=== PATIENT | female | born 1980 | race Caucasian/White ===

== ENCOUNTER 2020-01-23 13:33 | Emergency (ER) | payer OTHER, SELFPAY ==
[2020-01-23 13:45] VITALS: BP 130/88; PULSE 72; RESP 14; TEMP 36.6; O2SAT 99; BMI 27.4
[2020-01-23 14:10] LABS: Glucose Urine UA NEG (NEG); Leukocyte Esterase Urine NEG (NEG); Nitrite Urine NEG (NEG); PH 5.5 (5.0-8.0); Specific Gravity - Urine >= 1.030 (1.005-1.025); UPreg QC Valid YES; Urine Blood 2+ (NEG); Urine Ketones NEG (NEG); Urine Pregnancy NEGATIVE (NEGATIVE); Urine Protein NEG (NEG-TRACE)
[2020-01-23 14:13] LABS: Appearance Urine HAZY; Color Urine YELLOW
[2020-01-23 14:21] LABS: Amorphous Sediment Urine 2+ /LPF; WBC Urine 0 /HPF (0-4)
[2020-01-23 15:35] VITALS: BP 126/80; PULSE 62; RESP 18; TEMP 36.8; O2SAT 97
--- NOTE | 2020-01-23 15:42 | ED_ITS ---
HPI - Abdominal Pain General Chief Complaint: Abdominal Pain Stated Complaint: abd pain Time Seen by Provider: 01/23/20 15:41 Source: patient Mode of arrival: ambulatory Limitations: no limitations History of Present Illness HPI narrative: Pleasant 39-year-old female with past medical history that is significant for she is and surgical history of laparoscopic cholecystectomy, Caesarean section, tonsillectomy and adenectomy who presents today with complaint of pelvic cramping like discomfort for the past several days after she reports that she had a positive done 2 weeks ago and a week later she has some vaginal bleeding and passed a clot consistent with her previous 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 Bleeding has resolved. There is no vaginal discharge or dysuria. And also noted some mild swelling only in the mornings and will resolve in the evenings. She denies any chest pain or shortness of breath. She does report prior history of IVDA use but has been clean for many years now. Denies headache, and neck pain, back pain, fever or chills. MD elicited complaint: abdominal pain Pertinent past history: none Onset (ago): day(s) Severity: mild Quality: cramping Related Data Allergies Allergy/AdvReac Type Severity Reaction Status Date / Time No Known Allergies Allergy Unverified 11/02/19 15:39 Review of Systems Review of Systems Constitutional: No Weight loss, No Fever, No Chills, No Night Sweats, No Fatigue, No Malaise ENT/Mouth: No Hearing loss, No Ear Pain, No Nasal Congestion, No Sinus Pain, No Hoarseness, No sore throat, No Rhinorrhea, No Swallowing Difficulty Eyes: No Eye Pain, No Swelling, No Redness, No Foreign Body, No Discharge, No Vision Changes Cardiovascular: No Chest Pain, No SOB, No Dyspnea on Exertion, No Orthopnea, No Edema, No Palpitations Respiratory: No Cough, No Sputum, No Wheezing, No Smoke Exposure, No Dyspnea Gastrointestinal: No Nausea, No Vomiting, No Diarrhea, No Constipation, + abdominal Pain as noted in HPI Genitourinary: no irregular bleeding, No Dysuria, No Urinary Frequency, No Hematuria, No Urinary Incontinence, No Urgency Musculoskeletal: No joint pain, No Myalgias, No Joint Swelling Skin: No Skin Lesions, No rash Neuro: No Weakness, No Numbness, No Paresthesias, No Loss of Consciousness, No Dizziness, No Headache Psych: No Anxiety/Panic, No Depression, No SI/HI/AH/VH, No Social Issues Heme/Lymph: No Bruising, No Bleeding,No Lymphadenopathy Endocrine: No Polyuria, No Polydipsia, No Temperature Intolerance Yes all other systems are reviewed and are negative Physical Exam Vital Signs: Vital Signs: Last Vital Signs Temp 98.3 F 01/23/20 15:35 Pulse 62 01/23/20 15:35 Resp 18 01/23/20 15:35 BP 126/80 01/23/20 15:35 Pulse Ox 97 01/23/20 15:35 Body Mass Index 27.4 Reviewed Const: General: cooperative and healthy appearing; No acute distress or intoxicated appearing Nutritional Appearance: average body habitus Orientation/consciousness: patient oriented x3 HENMT: Head: Yes normal to inspection Ears: hearing grossly normal bilatera lly Eyes: General: appearance normal, both eyes and all related structures Visual Ca: normal visual ca by confrontation Neck: Neck: Yes normal visual inspection and No tender Thyroid: Thyroid normal Chest: Chest palpation & inspection: normal inspection of the chest Resp: Effort & Inspection: normal respiratory effort Auscultation: clear to auscultation bilaterally Cardio: Other: No swelling in the upper extremities or lower extremities. Jugular venous distension: no JVD Rhythm: regular rhythm Heart sounds: S1 normal heart sound present and S2 normal heart sound present GI: Inspection: Yes normal to inspection Palpation (GI): Soft to palpation Percussion: Yes normal to percussion Auscultation: normal bowel sounds : General: Yes no CVA tenderness Back/Spine/Pelvis: Back: no CVA tenderness Skin: General skin exam: no rashes or lesions noted Neuro: General: patient oriented x3 Extrem: General: Yes normal to inspection Course Course Course Narrative: 1430 Patient was evaluated directly upon arrival and went to ultrasound she has returned from the ultrasound department after having the pelvic ultrasound. RN at bedside to draw the blood work she now reports to speak to me tells me that she actually just came for a work note as she missed her job for the past 3 days and she does not feel the need to have blood work or feel it is necessary. 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 states she would really like to leave and does not want to wait for the ultrasound results. Again declined lab/ workup. For her pain in her hand swelling. She verbalized understanding that I do not know other clear reason which she has not this. Ultrasound imaging are not uploaded yet or have not received any formal reading of the ultrasound yet. She again understands this and is requesting to leave. Patient will be discharged on understanding that she is leaving against medical advice and to return and follow. MDM - Abdominal Pain Differential Diagnosis Differential diagnosis: Likely abdominal pain, calculus of kidney and ovarian cyst; Unlikely aortic dissection, acute appendicitis, bowel perforation, constipation, diverticulitis, endometriosis, gastroenteritis, gastritis, mesenteric ischemia, pancreatitis and renal colic Medical Records Attestation: I reviewed the patient's medical records. Lab Data Attestation: I reviewed the patient's lab results. Labs: Lab Results 01/23/20 Range/Units 13:59 Urine Color YELLOW Urine Appearance HAZY Urine pH 5.5 (5.0-8.0) Ur Specific [place] >= 1.030 H (1.005-1.025) Urine Protein NEG (NEG-TRACE) MG/DL Urine Glucose (UA) NEG (NEG) MG/DL Urine Ketones NEG (NEG) MG/DL Urine Blood 2+ H (NEG) Urine Nitrite NEG (NEG) Ur Leukocyte Esterase NEG (NEG) Urine RBC 5-9 H (0) /HPF Urine WBC 0 (0-4) /HPF Ur Squamous Epith Cells NONE /LPF Amorphous Sediment 2+ /LPF Urine Bacteria NONE /LPF Urine Test NEGATIVE (NEGATIVE) Imaging Data pelvic ovarian ultrasound: Radiologist's impression: [address] [address] Ultrasound Report Signed Patient: Ashley Sandoval MMR#: [id number] : 1980Acct:[id number] Age/Sex: 39 / FADM Date: 01/23/20 Loc: .ED Attending Dr: Ordering Physician: Dandre Lopes NP Date of Service: 01/23/20 Procedure(s): US pelvic complete Accession Number(s): [id number] cc: Dandre Lopes NP~ EXAMINATION: PELVIC ULTRASOUND CLINICAL INFORMATION: Pelvic pain COMPARISON: Pelvic ultrasound 04/25/2018 CT abdomen pelvis 08/30/2016 TECHNIQUE: Transabdominal endovaginal scanning was performed. FINDINGS: The anteverted uterus measuring 7.2 x 3.6 x 4.6 cm is seen and demonstrates heterogeneous echotexture without mass seen. The endometrium is unremarkable at 0.2 cm in thickness. Nabothian cysts are present The right ovary measures 2.0 x 3.1 x 1.3 cm for a volume of 4.2 mL and contains normal follicles Left ovary measures 3.0 x 1.7 x 1.4 cm for a volume of 3.7 mL and contains normal follicles. US/US pelvic complete IMPRESSION: Negative exam Dictated By:PHYLLIS DURAN MD Signed By:<Electronically signed by PHYLLIS DURAN MD in OV>01/23/20 1704 DD/ 1543 TD/TT: Diecast Machine Operator: SS Discharge Plan Discharge Clinical Impression: Pelvic pain Patient Disposition: Home, Self-Care Instructions: Pelvic Pain (ED) Referrals: Physician,Unknown [Primary Care Provider] - 1 week Stand Alone Forms: Work/School Release Interventions: ED Discharge Assessment Last Done: 01/23/20 17:26 Discharge Date/Time: 01/23/20 17:00 [facility] Past Medical History Medical History Opiate dependence Surgical History deliv NOS-unsp Hx of cholecystectomy Hx of tonsillectomy Social History Social History Advance Directives: No Advance Directives Information Provided: No
--- NOTE | 2020-01-23 16:01 | PC.NURSE ---
Pt c/o hanmd swelling x 2 days. Fingers/hands are visibly swollen. LS CTA. 3 attempts for labs/iv failed.
== END 2020-01-23 17:00 | disposition home or self-care (01) ==
PROVIDERS: Emergency Provider Internal Medicine
DX: R10.2 Pelvic and perineal pain (principal)
CPT/HCPCS: 76830; 76856; 81001; 81003; 81025; 93975; 96360; 99283; 99284